=== PATIENT | male | born 1955 | race Caucasian/White ===

== ENCOUNTER 2022-05-08 10:54 | Emergency (ER) | payer MEDICARE, OTHER, SELFPAY ==
[2022-05-08 11:07] VITALS: BP 140/87; PULSE 73; RESP 18; TEMP 36.8; O2SAT 100
--- NOTE | 2022-05-08 11:29 | ED.GENADULT ---
HPI - General Adult General Chief complaint: Skin/Abscess/Foreign Body Stated complaint: cyst History of Present Illness HPI narrative: Patient is a 66-year-old male who presents to the [facility] care via [facility]OV for evaluation of a chronic cyst that became painful and erythematous over the past week. Patient believes he may need this cyst drained prompting today's visit. Denies taking OTC meds for symptoms. Touching the area increases tenderness. Patient has had multiple epidermal cysts removed from back. He recently scheduled a new patient appointment with dermatology. His appointment is June 03, 2022. Related Data Home Medications Medication Instructions Recorded Confirmed amlodipine 5 mg tablet 5 mg DAILY 05/08/22 05/08/22 aspirin 81 mg tablet,delayed 81 mg DAILY 05/08/22 05/08/22 release carvedilol 25 mg tablet 25 mg DAILY 05/08/22 05/08/22 hydrochlorothiazide 25 mg tablet 25 mg DAILY 05/08/22 05/08/22 lisinopril 40 mg tablet 40 mg DAILY 05/08/22 05/08/22 rosuvastatin 10 mg tablet 10 mg DAILY 05/08/22 05/08/22 Allergies Allergy/AdvReac Type Severity Reaction Status Date / Time cashew nut Allergy Rash Verified 05/08/22 11:23 Review of Systems Review of Systems: Denies injury. Pertinent negatives fever, chills, sweats, malaise, poor p.o. intake, change in appetite, headache, LOC, dizziness, streaking, drainage, numbness, tingling, loss of sensation, foreign body sensation, deformity, sob, chest pain, and heart palpitations/murmurs. PMFSH Comments I have reviewed and agree with the patient's past medical, surgical, social, and family hx as documented by the RN. There is no relevant family history pertinent to the presenting complaint. Exam Narrative: GENERAL: Well-appearing, well-nourished, and in no acute distress. HEAD: Normocephalic, atraumatic. No facial swelling appreciated. EYES: PERRLA and EOMI. No evidence of erythema, swelling, or drainage. ENT: Nares clear, no rhinorrhea or epistaxis.Mucous membranes moist and pink. Uvula is midline without erythema and swelling. No evidence of obstruction, petechial rash, cobblestoning, lesions, ulcers, erythema, swelling, exudates, peritonsillar abscess, tenting, or drooling. Breath odor and voice normal. NECK: Supple. No Lymphadenopathy or nuchal rigidity appreciated. CHEST: Bilateral lung boland are clear to auscultation. No respiratory distress. No evidence of cough or pleuritic cp upon examination. HEART: Regular rate and rhythm. No murmur, gallop, or rub heard. EXTREMITIES: Normal range of motion. No edema. SKIN: Warm, dry. Epidermal cyst that is 4 x 4-1/2 cm in size noted to mid back. There is mild surrounding cellulitis. No evidence of abscess, streaking, induration, abrasions/lacerations, petechiae, hematoma, contusion, drainage, or bleeding. NEURO: No focal deficits. Alert and oriented x3. SPECIAL OBSERVATIONS: Smiling. Laughing. No evidence of discomfort. C/O of of proportion to exam. Course Course Level of Care: Express Care Visit Vital Signs Vital signs: Vital Signs Temperature 98.3 F 05/08/22 11:07 Pulse Rate 73 05/08/22 11:07 Respiratory Rate 18 05/08/22 11:07 Blood Pressure 140/87 05/08/22 11:07 Pulse Oximetry 100 05/08/22 11:07 Oxygen Delivery Room Air 05/08/22 11:07 Temperature 98.3 F 05/08/22 11:07 Pulse Rate 73 05/08/22 11:07 Respiratory Rate 18 05/08/22 11:07 Blood Pressure 140/87 05/08/22 11:07 Pulse Oximetry 100 05/08/22 11:07 Oxygen Delivery Room Air 05/08/22 11:07 Procedures Abscess I/D back: Date of Incision: 05/08/22 Time of Incision: 11:40 Sedation/analgesia: none Local Anesthetic: lidocaine 1% and with epi Amount of anesthesia used (mL): 2 Technique: incised with #11 blade Amount of fluid expressed (mL): 10 Irrigation: No Packing used?: none I&D Results: Other (keratin material) Complications: bleedin
== END 2022-05-08 12:06 | disposition home or self-care (01) ==
PROVIDERS: Emergency Provider Nurse Practitioner Family
DX: L72.0 Epidermal cyst (principal); E78.00 Pure hypercholesterolemia, unspecified; I10 Essential (primary) hypertension
CPT/HCPCS: 10060; 99213; G0463

== ENCOUNTER 2024-09-11 10:38 | Emergency (ER) | payer MEDICARE, OTHER, SELFPAY ==
[2024-09-11 11:03] VITALS: BP 132/81; PULSE 74; RESP 18; TEMP 36.7; O2SAT 99
--- NOTE | 2024-09-11 11:36 | ED.SKABFB ---
HPI - Skin/Abscess/Foreign Bdy General Chief complaint: Skin/Abscess/Foreign Body Stated complaint: Skin/Abscess/Foreign Body Time Seen by Provider: 09/11/24 10:40 Source: patient Mode of arrival: ambulatory Limitations: no limitations History of Present Illness HPI narrative: Patient is a 69-year-old male who presents with wound on right shoulder plain that has been there for years. Patient states the last week it has become inflamed and is on draining. Patient has had cysts removed or drained in the past. Denies any fever, chills, nausea, vomiting, diarrhea. Related Data Home Medications Medication Instructions Recorded Confirmed amlodipine 5 mg tablet 10 mg DAILY 05/08/22 09/11/24 aspirin 81 mg tablet,delayed 81 mg DAILY 05/08/22 09/11/24 release carvedilol 25 mg tablet 25 mg PO BID 05/08/22 09/11/24 hydrochlorothiazide 25 mg tablet 25 mg DAILY 05/08/22 09/11/24 lisinopril 40 mg tablet 40 mg DAILY 05/08/22 09/11/24 rosuvastatin 10 mg tablet 10 mg DAILY 05/08/22 09/11/24 celecoxib 100 mg capsule 100 mg PO BID 09/11/24 09/11/24 furosemide 20 mg tablet 20 mg PO PRN PRN Edema 09/11/24 09/11/24 metformin 500 mg tablet,extended 500 mg PO BID 09/11/24 09/11/24 release 24 hr Allergies Allergy/AdvReac Type Severity Reaction Status Date / Time cashew nut AdvReac Mild Rash Verified 09/11/24 11:16 Review of Systems Review of Systems: All systems reviewed & are unremarkable except as noted in HPI and below Constitutional: Constitutional: Denies body ache(s), Denies chills, Denies fatigue, Denies fever(s), Denies headache(s), Denies malaise and Denies weakness Eyes: Eyes: Denies blurry vision, Denies irritation and Denies loss of vision ENT: Denies otalgia, Denies headache(s), Denies nasal discharge, Denies sinus pain and Denies sore throat Cardiovascular: Cardiovascular: Denies chest pain, Denies irregular heart rhythm and Denies dyspnea Respiratory: Respiratory: Denies dyspnea Gastrointestinal: Gastrointestinal: Denies abdominal pain, Denies melena, Denies hematochezia, Denies diarrhea, Denies nausea and Denies vomiting Musculoskeletal: Musculoskeletal: Denies back pain, Denies myalgias and Denies arthralgias Integumentary/Breasts: Skin/Breast: Denies pruritus, Denies rash and Reports wounds Neurologic: Denies headache(s), Denies loss of vision and Denies weakness Psychiatric: Psychiatric: Reports no additional psychiatric complaints Endocrine: Endocrine: Denies fatigue PMFSH Comments At time of signature, agree with nursing past medical, surgical, social and family history. There is no relevant family history pertinent to the presenting complaint. Exam Const: General: cooperative, healthy appearing, comfortable, no acute distress and well nourished Nutritional Appearance: well nourished Orientation/consciousness: patient oriented x3 Limitations: no limitations HENMT: Head: normal to inspection, normocephalic and atraumatic Ears: hearing grossly normal bilaterally and external ears normal Face/Nose/Sinus: Normal external nose present, normal facial exam and face symmetric Face and sinus: normal facial exam and face symmetric Mouth: Yes lip normal Eyes: General: appearance normal, both eyes and all related structures Alignment and Position: alignment normal and position normal Periorbital: periorbital findings normal Eyelids: eyelids normal Pupils: Equal, round and reactive pupils present EOM: EOMs intact bilaterally Neck: Neck: normal visual inspection, full ROM and supple Chest: Chest palpation & inspection: normal inspection of the chest Resp: Effort & Inspection: normal respiratory effort and able to speak in complete sentences Auscultation: clear to auscultation bilaterally Cardio: Rate: regular rate Rhythm: regular rhythm Heart sounds: S1 normal heart sound present and S2 normal heart sound present GI: Inspection: normal to inspection Skin: General skin exam: normal color and no rashes or lesions noted Lesions: lesion noted cyst right upper back size (2x2 cm), borders well-defined, color red, consistency firm and fixed and other (multiple dilated pores with sanguinopurulent drainage. surrounding area with induration and erythema); nontender Full body images: 1. wound description above Neuro: General: patient oriented x3 and moves all extremities Cranial nerves: Yes Equal, round and reactive pupils present Speech: normal speech Gait exam (Neuro): Normal gait present Extrem: General: normal to inspection, full ROM and no edema Psych: Appearance: grossly normal and well kempt Mental Status: mental status grossly normal Speech and movement: Normal speech and movement present Affect: normal affect Attitude: cooperative Thought process: Normal thought process present Course Course Emergency Course: Patient is aware of diagnosis, understands and agrees to treatment plan. Anticipatory guidance given. Patient agrees to follow-up as directed and is aware of reasons to seek care at the emergency department. Portions of this record may have been created with voice recognition software Level of Care: Express Care Visit Vital Signs Vital signs: Vital Signs Temperature 36.7 C 09/11/24 11:03 Pulse Rate 74 09/11/24 11:03 Respiratory Rate 18 09/11/24 11:03 Blood Pressure 132/81 09/11/24 11:03 Pulse Oximetry 99 09/11/24 11:03 Oxygen Delivery Room Air 09/11/24 11:03 Temperature 36.7 C 09/11/24 11:03 Pulse Rate 74 09/11/24 11:03 Respiratory Rate 18 09/11/24 11:03 Blood Pressure 132/81 09/11/24 11:03 Pulse Oximetry 99 09/11/24 11:03 Oxygen Delivery Room Air 09/11/24 11:03 Reviewed MDM - Skin/Abscess/Foreign Bdy MDM Narrative Medical decision making narrative: Area is already draining. Culture obtained and sent. Discussed follow-up with dermatology. Antibiotics referral given Exam findings show no acute concerns or changes; patient is non-toxic appearing and is in no distress.? Patient is appropriate for outpatient treatment and follow-up. Discharge instructions reviewed with patient, as well as provided in writing per nursing staff. The instructions also include specific and strict return/GO TO THE ER as well as f/u information. All questions have been answered, and the patient deny any further questions with discharge and discharge plan. Differential Diagnosis Differential diagnosis: Likely abscess of skin or subcutaneous tissue, cellulitis, insect bites and contact dermatitis Medical Records Attestation: I reviewed the patient's medical records. Discharge Plan Discharge Clinical Impression: Abscess of skin or subcutaneous tissue Qualifiers: Site of cutaneous abscess: trunk Site of cutaneous abscess of trunk: back Qualified Code(s): L02.212 - Cutaneous abscess of back [any part, except buttock] Patient Disposition: Home, Self-Care Condition: Stable Instructions: Abscess (ED) Additional Instructions: Take antibiotics as prescribed. Follow-up with dermatology. You have been prescribed Doxycycline today.It may make your skin more sensitive to sunlight than normal. Make sure you wear sunscreen at all times when outside while on the medication. You may shower - let the soapy water clean your wound, do not scrub it. Keep your wound covered to prevent transmission of infection to other people. Keep the wound covered and dry. Once a day: wash the wound with soap/water, apply Bactroban and re-cover the wound. Follow up with your primary care physician or in the Emergency Department in 2-3 days for a wound check. Go to the Emergency Department immediately if you develop any of the following symptoms: Fevers, Increased redness or swelling around where your abscess was, Increased pain, or Generalized weakness or vomiting Prescriptions: New doxycycline monohydrate 100 mg tablet 100 mg PO BID 7 Days Qty: 14 0RF No Action carvedilol 25 mg tablet 25 mg PO BID amlodipine 5 mg tablet 10 mg DAILY aspirin 81 mg tablet,delayed release (DR/EC) 81 mg DAILY hydrochlorothiazide 25 mg tablet 25 mg DAILY lisinopril 40 mg tablet 40 mg DAILY rosuvastatin 10 mg tablet 10 mg DAILY furosemide 20 mg tablet 20 mg PO PRN PRN (Reason: Edema) celecoxib 100 mg capsule 100 mg PO BID metformin 500 mg tablet extended release 24 hr 500 mg PO BID Follow-up/Referrals: Jh Zuñiga M.D. [Physician] - 3 Days (Make appointment for cyst removal) PHYSICIAN,PUBLIC SPEAKING COACH [Primary Care Provider] - Shivam Romero MD [Physician] - 3 Days (Establish care) Time of Disposition: 11:40
== END 2024-09-11 11:42 | disposition home or self-care (01) ==
PROVIDERS: Emergency Provider Nurse Practitioner Family
DX: L02.212 Cutaneous abscess of back [any part, except buttock and flank] (principal); I10 Essential (primary) hypertension; E78.00 Pure hypercholesterolemia, unspecified; M19.90 Unspecified osteoarthritis, unspecified site
CPT/HCPCS: 87070; 87075; 87205; 99213; G0463

== ENCOUNTER 2024-10-31 11:05 | Emergency (ER) | payer MEDICARE, OTHER, SELFPAY ==
--- NOTE | 2024-10-31 11:18 | ED.URI ---
HPI - URI/Sore Throat General Chief Complaint: Upper Respiratory Infection Stated Complaint: flu like symptoms Time Seen by Provider: 10/31/24 11:18 Source: patient, RN notes reviewed and old records reviewed Mode of arrival: ambulatory Limitations: no limitations History of Present Illness HPI Narrative: patient presents with complaints of flu-like symptoms since 4:00 a.m. this morning. He reports that he had fever of 101, took aspirin and felt better. He reports upon awakening he had headache, runny nose, cough, body aches. All symptoms have resolved since his arrival. He does report that he is more tired than usual Related Data Home Medications ?Medication ?Instructions ?Recorded ?Confirmed ?Last Taken ?Type amlodipine 5 mg tablet 10 mg DAILY 05/08/22 09/11/24 Unknown History aspirin 81 mg tablet,delayed 81 mg DAILY 05/08/22 09/11/24 Unknown History release carvedilol 25 mg tablet 25 mg PO BID 05/08/22 09/11/24 Unknown History hydrochlorothiazide 25 mg tablet 25 mg DAILY 05/08/22 09/11/24 Unknown History lisinopril 40 mg tablet 40 mg DAILY 05/08/22 09/11/24 Unknown History rosuvastatin 10 mg tablet 10 mg DAILY 05/08/22 09/11/24 Unknown History celecoxib 100 mg capsule 100 mg PO BID 09/11/24 09/11/24 Unknown History furosemide 20 mg tablet 20 mg PO PRN PRN Edema 09/11/24 09/11/24 Unknown History metformin 500 mg tablet,extended 500 mg PO BID 09/11/24 09/11/24 Unknown History release 24 hr Allergies Allergy/AdvReac Type Severity Reaction Status Date / Time cashew nut AdvReac Mild Rash Verified 10/31/24 11:21 Review of Systems Review of Systems: All systems reviewed & are unremarkable except as noted in HPI and below Constitutional: Constitutional: Reports no additional constitutional complaints, Reports body ache(s), Reports fever(s), Reports headache(s) and Reports lethargy ENT: Reports system reviewed and no additional complaints, except as documented and Reports nasal discharge Cardiovascular: Cardiovascular: Reports no additional cardiovascular complaints Respiratory: Respiratory: Reports no additional respiratory complaints and Reports cough Gastrointestinal: Gastrointestinal: Reports no additional gastrointestinal complaints PMFSH Comments At the time of my signature, I reviewed and agree with the nursing past medical, surgical, social, and family history. There is no relevant family history pertinent to the patient complaint. Exam Const: General: cooperative, no acute distress, alert and awake Orientation/consciousness: oriented to person, oriented to place and oriented to time HENMT: Head: normal to inspection Ears: TM's normal bilaterally Mouth: Yes moist mucous membranes Throat: posterior oropharynx normal Resp: Effort & Inspection: normal respiratory effort and able to speak in complete sentences Auscultation: clear to auscultation bilaterally, no crackles, no rales, no rhonchi and no wheezes Cardio: Palpation: normal PMI Rate: regular rate Rhythm: regular rhythm Heart sounds: S1 normal heart sound present and S2 normal heart sound present Neuro: General: oriented to person, oriented to place and oriented to time Cranial nerves: Yes CN's II-XII intact bilaterally Psych: Appearance: grossly normal Thought process: Normal thought process present Insight: Good insight present (Psych) Judgement: Good judgement present (Psych) Course Course Level of Care: Express Care Visit Vital Signs Vital signs: Reviewed MDM - URI/Sore Throat MDM Narrative Medical decision making narrative: negative flu, negative COVID. Reassuring physical exam. Counseled patient that flu and COVID tests may very well be inaccurate due to the short duration of symptoms prior to testing. Patient verbalizes understanding. Supportive care measures discussed. Suspect that symptoms are viral in origin. Discharge instructions reviewed with patient, as well as provided in writing per nursing staff. The instructions also include specific and strict return/GO TO THE ER as well as f/u information. All questions have been answered, and the patient deny any further questions with discharge and discharge plan. Some parts of this dictation were generated by voice recognition software and may contain typographical and/or grammatical inaccuracies. Differential Diagnosis Differential diagnosis: Likely upper respiratory infection, viral infection, bronchitis and influenza Medical Records Attestation: I reviewed the patient's medical records. Lab Data Attestation: I reviewed the patient's lab results. Discharge Plan Discharge Clinical Impression: Viral infection Patient Disposition: Home, Self-Care Condition: Stable Instructions: Antibiotic Form, Viral Syndrome (ED) Additional Instructions: use [id number] medications to treat your symptoms. Follow-up with primary care provider. Emergency department for new or worsening symptoms Patient Language: Frisian Prescriptions: No Action carvedilol 25 mg tablet 25 mg PO BID amlodipine 5 mg tablet 10 mg DAILY aspirin 81 mg tablet,delayed release (DR/EC) 81 mg DAILY hydrochlorothiazide 25 mg tablet 25 mg DAILY lisinopril 40 mg tablet 40 mg DAILY rosuvastatin 10 mg tablet 10 mg DAILY furosemide 20 mg tablet 20 mg PO PRN PRN (Reason: Edema) celecoxib 100 mg capsule 100 mg PO BID metformin 500 mg tablet extended release 24 hr 500 mg PO BID doxycycline monohydrate 100 mg tablet 100 mg PO BID 7 Days Qty: 14 0RF Follow-up/Referrals: Gilberto,MAHNAZ Quick [Primary Care Provider] - 1 Week Time of Disposition: 11:59
[2024-10-31 11:26] VITALS: BP 118/64; PULSE 78; RESP 20; TEMP 36.8; O2SAT 98
[2024-10-31 11:42] LABS: EDINFLUASCREEN Negative (Negative); EDINFLUBSCREEN Negative (Negative)
[2024-10-31 11:43] LABS: EDCOVIDSCREEN Negative (Negative)
--- OUTSIDE RECORDS SUMMARY | 2024-10-31 12:12 | XMS_ITS | Data Portability ---
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 Plan of Treatment Reminders Order Date Submit Date Provider Last Modified By Organization Details Last Modified Time Details Appointments None recorded. Lab None recorded. Referral None recorded. Procedures None recorded. Surgeries None recorded. Imaging electrocar diogram 2021 ADRIENNE Not available 2 17:00:43 electrocar diogram 2021 022 [email or web address] Not available 2 15:35:37 Medication Orders Lasix 20 mg tablet 2019 020 INTERFACE [facility], [address] [place] [address], [address], 0 14:00:59 magnesium oxide 400 mg (241.3 mg magnesium) tablet 2019 020 INTERFACE [facility], [address] [place] [address], [address], 0 14:00:59 aspirin 81 mg tablet,del ayed release 2019 020 INTERFACE [facility], [address] [place] [address], [address], 0 14:01:01 atenolol 50 mg tablet 2019 020 [facility], [address] [place] [address], [address], 0 12:42:44 hydrochlor othiazide 25 mg tablet 2019 INTERFACE [facility], [address] [place] [address], [address], 0 14:05:50 lisinopril 40 mg tablet 2019 INTERFACE [facility], [address] [place] [address], [address], 0 14:01:00 Lasix 20 mg tablet 2019 INTERFACE [facility], [address] [place] [address], [place], [id number], 0 14:01:00 simvastati n 40 mg tablet 2019 020 [email or web address] [facility], [address] [place] [address], [place], [id number], 2 14:49:12 aspirin 81 mg tablet,del ayed release 2019 INTERFACE [facility], [address] [place] [address], [place], [id number], 0 12:44:29 carvedilol 6.25 mg tablet 2019 [email or web address] [facility], [address] [place] [address], [place], [address], 1 13:10:40 Lasix 20 mg tablet 2019 INTERFACE [facility], [address] [place] [address], [place], [id number], 0 12:44:29 hydrochlor othiazide 25 mg tablet 2019 INTERFACE [facility], [address] [place] [address], [place], [address], 0 12:44:27 lisinopril 40 mg tablet 2019 020 [facility], [address] [place] [address], [address], 0 12:44:26 magnesium oxide 400 mg (241.3 mg magnesium) tablet 2019 020 [facility], [address] [place] [address], [address], 0 12:44:26 aspirin 81 mg tablet,del ayed release 2020 021 [facility], [address] [place] [address], [address], 13:13:58 Lasix 20 mg tablet 2020 021 [facility], [address] [place] [address], 490[address], 1 13:23:56 hydrochlor othiazide 25 mg tablet 2020 021 [facility], [address] [place] [address], 7[address], 1 13:28:54 lisinopril 40 mg tablet 2020 021 [facility], [address] [place] [address], [address], 1 13:13:57 magnesium oxide 400 mg (241.3 mg magnesium) tablet 2020 021 [facility], [address] [place] [address], 10574, 1 13:13:54 carvedilol 12.5 mg tablet 2020 021 [facility], [address] [place] [address], [address], 2 15:25:02 simvastati n 40 mg tablet [id number] [email or web address] [facility], [address] [place] [address], [place], [address], 14:49:12 aspirin 81 mg tablet,del ayed release 2021 [facility], [address] [place] [address], [place], [address], 15:35:42 Lasix 20 mg tablet 2021 [facility], [address] [place] [address], [place], [address], 15:35:44 hydrochlor othiazide 25 mg tablet 2021 [facility], [address] [place] [address], [place], [address], 15:35:45 lisinopril 40 mg tablet 2021 [facility], [address] [place] [address], [place], [address], 15:35:40 magnesium oxide 400 mg (241.3 mg magnesium) tablet 2021 [facility], [address] [place] [address], [place], [address], 15:35:42 carvedilol 25 mg tablet 2021 [facility], [address] [place] [address], [place], [address], 15:37:10 carvedilol 12.5 mg tablet 2021 [email or web address] [facility], [address] [place] [address], [place], [address], 15:25:02 simvastati n 40 mg tablet [id number] [address] [facility], [address] [place] [address], [address], 14:49:12 amlodipine 5 mg tablet 2021 [facility], [address] [place] [address], [address], 15:45:32 aspirin 81 mg tablet,del ayed release 2021 [facility], [address] [place] [address], [address], 15:45:31 carvedilol 25 mg tablet 2021 [facility], [address] [place] [address], [address], 15:45:29 Lasix 20 mg tablet 2021 [facility], [address] [place] [address], [address], 15:45:34 hydrochlor othiazide 25 mg tablet 2021 [facility], [address] [place] [address], [address], 15:45:33 lisinopril 40 mg tablet 2021 [facility], [address] [place] [address], [address], 15:45:34 magnesium oxide 400 mg (241.3 mg magnesium) tablet 2021 [facility], [address] [place] [address], 92[address], 15:45:30 simvastati n 40 mg tablet 2021 [email or web address] [facility], [address] [place] [address], [address], 14:49:12 Patient TargetsNo targets recorded. Patient Instructions Encounter Date Encounter Id Patient Instructions Last Modified By Organization Details Last Modified Time 05/30/2020 [id number] elevated blood pressure: care instructions [email or web address] Not available 05/30/2020 14:00:47 high cholesterol : care instructions [email or web address] Not available 05/30/2020 14:00:47 08/22/2020 [id number] elevated blood pressure: care instructions [email or web address] Not available 08/22/2020 12:42:34 high cholesterol : care instructions [email or web address] Not available 08/22/2020 12:42:34 08/21/2021 [id number] elevated blood pressure: care instructions [email or web address] Not available 08/21/2021 13:13:40 high cholesterol : care instructions [email or web address] Not available 08/21/2021 13:13:40 02/19/2022 [id number] elevated blood pressure: care instructions [email or web address] Not available 02/19/2022 15:35:38 high cholesterol : care instructions [email or web address] Not available 02/19/2022 15:35:38 Reason for Referral None Reported. Results Created Date Observation Date Name Description Value Unit Range Abnormal Flag Note LastModifiedBy Organization Detail LastModifiedTime 05/09/20 20 04/25/2020 elect rocar diogr am No observ ation record ed. [email or web address] Not Available 2019 11:55:28 08/28/20 20 08/22/2020 elect rocar diogr am No observ ation record ed. [email or web address] Not Available 2019 11:30:19 08/26/20 21 08/21/2021 elect rocar diogr am No observ ation record ed. [email or web address] Not Available 2020 11:09:58 10/16/19 22 09/22/2021 , echo ardio gram No observ ation record ed. [email or web address] Not Available 2021 14:40:55 02/20/20 22 02/19/2022 elect rocar diogr am No observ ation record ed. [email or web address] Dhaval Steele MD [address], [place], [address], 02/19/2022 17:00:43 02/20/20 22 02/19/2022 elect nasir quintana am No observ ation record ed. [email or web address] Dhaval Steele MD [address], [place], [address], 05/02/2022 16:33:27 02/21/20 22 02/19/2022 elect ansir quintana am No observ ation record ed. [email or web address] Not Available 2021 09:55:32 Result Notes Documentation Provider Name and Address Organization Details Recorded Time Lipid Panel, Blood : 08/26/21:Na 142,k 3.9,Cl 101,Co2 27,Glu 114,Bun 19,Cr 0.90. 08/26/21:TC 166,TG 139,HDL 38,LDL 102. Shruthi herrera [place] - [facility] 09/24/2021 11:02:46 Problems Name Problem SNOMED Code Status Onset Date Resolution Date Notes Provider Name and Address Organization Details Recorded Time Hypertensiv e disorder 37014401 Active 2018 Shruthi herrera, [place] - [facility] 2 14:38:04 Hyperlipide rashaad 93080904 Active 2018 Shruthi herrera, [place] - [facility] 2 14:37:58 Electrocard iogram abnormal 337160980 Active 2018 Jerzy herrera, [place] - [facility] 9 16:13:58 Dyspnea on exertion 84683816 Active 2018 Jerzy herrera, [place] - [facility] 9 16:15:27 Pre-surgery evaluation Completed 201809/21/2019 Jerzy herrera [place] - [facility] 9 14:48:29 Chest discomfort 921234598 Active 2018 Jerzy [place] - [facility] 9 14:48:41 Diabetes mellitus 11738866 Active 2018 HgbA1c 6.4 PC Jerzy herrera, [place] - [facility] 15:24:41 Problem Notes None recorded. Procedures Surgical History None recorded. Imaging Results Imaging Date Name Status LastModified by Organization Details LastModified Time 04/25/2020 electrocardiogram completed Informa tion not available 05/09/2020 11:55:28 08/22/2020 electrocardiogram completed Informa tion not available 08/28/2020 11:30:19 08/21/2021 electrocardiogram completed Informa tion not available 08/26/2021 11:09:58 09/22/2021 US, echocardiogram completed [email or web address] Inform ation not available 02/16/2022 14:40:55 02/19/2022 electrocardiogram completed [email or web address] Dhaval Bearden MD [address], [place], [address], 02/19/2022 17:00:43 02/19/2022 electrocardiogram completed esto Dhaval Bearden MD [address], [place], [address], 05/02/2022 16:33:27 02/19/2022 electrocardiogram completed Informa tion not available 02/20/2022 09:55:32 Procedure Notes None recorded. Medical Equipment None Reported. Allergies No known drug allergies Medications Name Sig Start Date Stop Date Status Note LastModified by Organization Details LastModified Time carvedilo l 25 mg tablet Take 1 tablet twice a day by oral route. active Not Available Not Available No t Available carvedilo l 6.25 mg tablet Take 1 tablet twice a day by oral route. 08/21 completed Not Available Not Available Not Available prednison e 10 mg tablet 09/21 completed Not Available Not Available Not Available carvedilo l 12.5 mg tablet Take 1 tablet twice a day by oral route. 04/02 completed Not Available Not Available Not Available ofloxacin 0.3 % eye drops 04/25 completed Not Available Not Available Not Available valacyclo vir 1 gram tablet 04/25 completed Not Available Not Available Not Available prednison e 20 mg tablet 09/21 completed Not Available Not Available Not Available amlodipin e 5 mg tablet Take 1 tablet every day by oral route. active Not Available Not Available No t Available simvastat in 80 mg tablet Take 1 tablet every day by oral route at bedtime. 08/21 completed Not Available Not Available Not Available sulfameth oxazole 800 mg-trimet hoprim 160 mg tablet 03/23 completed Not Available Not Available Not Available aspirin 81 mg tablet,de layed release 1 time daily active Not Available Not Available No t Available simvastat in 40 mg tablet Take 1 tablet every day by oral route in the evening. 04/16 completed 04/02/22 [facility] Rx informed office simvasta tin is contrain dicated with Amlodipi ne - order: disconti nue simvasta tin and start Crestor/ NU/ek Not Available Not Available Not Available ketorolac 0.5 % eye drops 04/25 completed Not Available Not Available Not Available prednisol one acetate 1 % eye drops,[employer] pension 04/25 completed Not Available Not Available Not Available magnesium oxide 400 mg (241.3 mg magnesium ) tablet Take 1 tablet every other day by oral route. active Not Available Not Available No t Available simvastat in 20 mg tablet 1 time daily 03/23 completed Not Available Not Available Not Available hydrochlo rothiazid e 25 mg tablet 1 time daily active Not Available Not Available No t Available furosemid e 20 mg tablet Take 0.5 tablets every day by oral route as needed. active Not Available Not Available No t Available lisinopri l 40 mg tablet 1 time daily active Not Available Not Available No t Available metformin ER 500 mg tablet,ex tended release 24 hr 1 tab twice daily active Not Available Not Available No t Available atenolol 50 mg tablet 1 time daily 08/22 completed Not Available Not Available Not Available rosuvasta tin 10 mg tablet Take 1 tablet every day by oral route at bedtime. active Not Available Not Available No t Available Afluria Quad (PF) 60 mcg (15 mcg x 4)/0.5 mL IM syringe 04/25 completed Not Available Not Available Not Available Fluzone Quad (PF) 60 mcg (15 mcg x 4)/0.5 mL IM syringe ADM 0.5ML IM UTD active Not Available Not Available No t Available Vitals Date Recorded Body height Body temperature Body mass index (BMI) Body weight Oxygen saturation Oxygen saturation in Arterial blood by Pulse oximetry Heart rate Systolic blood pressure Diastolic blood pressure Provider Name and Address Organization Details Last Updated DateTime 0 162.56 cm 97.9 [degF] 36 kg/m2 41003.6 g 98 % 98 % 78 /min 134 mm[Hg] 90 mm[Hg] [facility] 0 11:05:46 Date Recorded Body height Oxygen saturation Oxygen saturation in Arterial blood by Pulse oximetry Body temperature Body mass index (BMI) Body weight Heart rate Systolic blood pressure Diastolic blood pressure Provider Name and Address Organization Details Last Updated DateTime 0 162.56 cm 97 % 97 % 98.2 [degF] 36.9 kg/m2 26931.3 6 g 63 /min 170 mm[Hg] 100 mm[Hg] [facility] 0 12:08:44 Date Recorded Body height Body mass index (BMI) Body weight Heart rate Oxygen saturation Oxygen saturation in Arterial blood by Pulse oximetry Systolic blood pressure Diastolic blood pressure Provider Name and Address Organization Details Last Updated DateTime 1 162.56 cm 34 kg/m2 44319.2 9 g 68 /min 99 % 99 % 170 mm[Hg] 110 mm[Hg] [facility] 1 12:26:48 Date Recorded Body height Body mass index (BMI) Body weight Heart rate Systolic blood pressure Diastolic blood pressure Provider Name and Address Organization Details Last Updated DateTime 2 162.56 cm 33.5 kg/m2 87270.5 1 g 72 /min 160 mm[Hg] 96 mm[Hg] [facility] 2 15:01:16 Date Recorded Body height Body mass index (BMI) Body weight Oxygen saturation Oxygen saturation in Arterial blood by Pulse oximetry Heart rate Systolic blood pressure Diastolic blood pressure Provider Name and Address Organization Details Last Updated DateTime 2 162.56 cm 33.6 kg/m2 38464.1 g 97 % 97 % 69 /min 164 mm[Hg] 92 mm[Hg] DERRELL VARGHESE [facility] 2 14:54:28 Social History Question Answer Notes LastModified by Organizat ion Details LastModified Time Tobacco Smoking Status [facility] 08/22/2020 12:11:19 What Is Your Level Of Alcohol Consumption? None Information not available 08/22/2020 What Is Your Level Of Caffeine Consumption? Moderate 1 Cup Coffee Qd Information not available 08/22/2020 What Type Of Diet Are You Following? REGULAR Information not available 08/22/2020 Which Illicit Or Recreational Drugs Have You Used? Denies Information not available 08/22/2020 Do You Or Have You Ever Used E-cigarettes Or Vape? Never Used Electronic Cigarettes Information not available 08/22/2020 Live Alone Or With Others? With Others Information not available 08/22/2020 Marital Status Informatio n not available 08/22/2020 How Many Children Do You Have? 1 Adopted Information not available 08/22/2020 Sex: Unknown Functional Status None recorded. Mental Status None recorded. Family History Relationship Description Onset Age of this Age Resolved Age Notes LastModified by Organization Details LastModified Time Mother Diabetes mellitus [email or web address] Not available 2018 16:03:56 Medical History Condition Response Diabetes Y Hyperlipidemia Y Hypertension Y Past Encounters Encounter ID Performer Location Encounter Start Date Encounter Closed Date Diagnosis/Indication Diagnosis SNOMED-CT Code Diagnosis ICD10 Code Diagnosis Note [id number] Jerzy Johnsonski [address] [place] [address] 03/02/2019 15:32:07 03/02/2019 16:19:50 Electrocardiogram abnormal 490463393 R94.31 Hyperlipidemia 57087352 E78.5 will obtain lipid panelcont statin Hypertensive disorder 38 222541 I10 Patient's blood pressure is {{well-con trolled* n ot well-contr olled}} on present medical therapy. Patient is {{tolerati ng, without difficulty ,* having side effects with}} the current medication s. I have {{not made* made the following} } changes to the current regimen. {{ Patient is advised to maintain a blood pressure diary.*}} Cont low Na diet. Dyspnea on exertion 6084 5006 R06.09 Patient presents with ORR which could be equivalent of angina.Giv en the history, exam findings and {{high int ermediate * low}} cardiac risk factors, I {{feel* do not feel}} additional investigat ion is warranted. I have made arrangemen ts in the near future for {{an exercise stress echocardio gram to evaluate for any ischemia, structural heart disease, or exercise induced arrythmia an exercise stress nuclear test an exercise stress nuclear test (stress echo not possible due to COPD or obesity) a n exercise stress nuclear test and an echocardio gram to evaluate for any ischemia or structural heart disease* a pharmacolo gic stress nuclear test due to reduced functional capacity or conduction abnormalit y cardiac catheteriz ation an echocardio gram to evaluate left ventricula r function and any structural heart disease or valvular abnormalit y}}. The procedure was discussed with the patient, and risks, benefits, and alternativ e options were explained. {{ The patient was informed about heart catheteriz ation and interventi onal procedures and agrees to proceed.}} Appropriat e labwork {{has has not*}} been performed recently, therefore I {{have not have*} } made arrangemen ts for further testing. I have asked the patient to curtail exercise and activities until our investigat ion is complete. I have {{made no made the following* }} adjustment s to the present medical regimen. {{ Patient has been started on daily aspirin.}} {{ Patient has been given a prescripti on for sublingual nitroglyce rin.}} Pre-surger y evaluation 354306933 Z01.818 if stress test negative pt does have low risk for low risk surgery [id number] [facility] OFFICE [address] [place] [address] 03/23/2019 14:42:56 03/23/2019 15:47:39 Electrocardiogram abnormal 333017406 R94.31 Hyperlipidemia 87120721 E78.5 Patient's hyperlipid emia is {{well-con trolled* n ot well-contr olled}} on present medical therapy. Patient is {{tolerati ng, without difficulty ,* having side effects with}} the current medication s. I have {{not made* made the following} } changes to the current regimen. Cont low cholestero l diet. Hypertensive disorder 38 612458 I10 Patient's blood pressure is {{well-con trolled* n ot well-contr olled}} on present medical therapy. Patient is {{tolerati ng, without difficulty ,* having side effects with}} the current medication s. I have {{not made* made the following} } changes to the current regimen. {{ Patient is advised to maintain a blood pressure diary.*}} Cont low Na diet. Dyspnea on exertion 6084 5006 R06.09 stress test negativeco nt medical management and risk factor modificati on Pre-surger y evaluation 717038074 Z01.818 tress test negative pt does have low risk for low risk [id number] [address] [place] [address] 09/21/2019 13:51:30 09/21/2019 14:51:15 Hyperlipidemia 87012122 E78.5 Patient's hyperlipid emia is {{well-con trolled* n ot well-contr olled}} on present medical therapy. Patient is {{tolerati ng, without difficulty ,* having side effects with}} the current medication s. I have {{not made* made the following} } changes to the current regimen. Cont low cholestero l diet. Hypertensive disorder 38 790212 I10 Patient's blood pressure is {{well-con trolled* n ot well-contr olled}} on present medical therapy. Patient is {{tolerati ng, without difficulty ,* having side effects with}} the current medication s. I have {{not made* made the following} } changes to the current regimen. {{ Patient is advised to maintain a blood pressure diary.*}} Cont low Na diet. Chest discomfort 9733363 09 R07.89 Patient presents with {{chest* a rm back ja w}} pain {{typical of angina wit h atypical features*} }. Given the history, exam findings and {{high int ermediate * low}} cardiac risk factors, I {{feel* do not feel}} additional investigat ion is warranted. I have made arrangemen ts in the near future for {{coronary CTA# an exercise stress echocardio gram to evaluate for any ischemia, structural heart disease, or exercise induced arrythmia an exercise stress nuclear test an exercise stress nuclear test (stress echo not possible due to COPD or obesity) a n exercise stress nuclear test and an echocardio gram to evaluate for any ischemia or structural heart disease a pharmacolo gic stress nuclear test due to reduced functional capacity or conduction abnormalit y cardiac catheteriz ation an echocardio gram to evaluate left ventricula r function and any structural heart disease or valvular abnormalit y}}. The procedure was discussed with the patient, and risks, benefits, and alternativ e options were explained. {{ The patient was informed about heart catheteriz ation and interventi onal procedures and agrees to proceed.}} Appropriat e labwork {{has has not*}} been performed recently, therefore I {{have not have*} } made arrangemen ts for further testing. I have asked the patient to curtail exercise and activities until our investigat ion is complete. I have {{made no made the following* }} adjustment s to the present medical regimen. {{ Patient has been started on daily aspirin.}} {{ Patient has been given a prescripti on for sublingual nitroglyce rin.}} [id number] [facility] [address] [place] [address] 10/26/2019 14:04:29 10/26/2019 15:03:06 Electrocardiogram abnormal 132951575 R94.31 Hyperlipidemia 37924999 E78.5 Patient's hyperlipid emia is {{well-con trolled* n ot well-contr olled}} on present medical therapy. Patient is {{tolerati ng, without difficulty ,* having side effects with}} the current medication s. I have {{not made* made the following} } changes to the current regimen. Cont low cholestero l diet. Hypertensive disorder 38 826168 I10 Patient's blood pressure is {{well-con trolled* n ot well-contr olled}} on present medical therapy. Patient is {{tolerati ng, without difficulty ,* having side effects with}} the current medication s. I have {{not made* made the following} } changes to the current regimen. {{ Patient is advised to maintain a blood pressure diary.*}} Cont low Na diet. Dyspnea on exertion 6084 5006 R06.09 stress test negativeco ronary CTA: no significan t CAD.cont medical management and risk factor modificati on Pre-surger y evaluation 394006328 Z01.818 tress test negative pt does have low risk for low risk surgery [id number] [facility] OFF[facility] [address] [place] [address] 04/25/2020 13:52:14 04/25/2020 14:28:39 Electrocardiogram abnormal 192386128 R94.31 Hyperlipidemia 00530443 E78.5 Patient's hyperlipid emia is {{well-con trolled* n ot well-contr olled}} on present medical therapy. Patient is {{tolerati ng, without difficulty ,* having side effects with}} the current medication s. I have {{not made* made the following} } changes to the current regimen. Cont low cholestero l diet. repeat FLP Hypertensive disorder 38 792094 I10 Patient's blood pressure is {{well-con trolled no t well-contr olled*}} on present medical therapy. Patient is {{tolerati ng, without difficulty ,* having side effects with}} the current medication s. I have {{not made* made the following} } changes to the current regimen. {{ Patient is advised to maintain a blood pressure diary.*}} Cont low Na diet. BP diary Dyspnea on exertion 6084 5006 R06.09 stress test negativeco ronary CTA: no significan t CAD[place] [id number] [facility] [address] [place] [address] 05/30/2020 10:54:39 05/30/2020 14:04:39 Electrocardiogram abnormal [id number] R94.31 Hyperlipidemia [id number] E78.5 Patient's hyperlipid emia is {{well-con trolled* n ot well-contr olled}} on present medical therapy. Patient is {{tolerati ng, without difficulty ,* having side effects with}} the current medication s. I have {{not made* made the following} } changes to the current regimen. Cont low cholestero l diet. repeat FLP Hypertensive disorder 38 [id number] I10 Patient's blood pressure is {{well-con trolled no t well-contr olled*}} on present medical therapy. Patient is {{tolerati ng, without difficulty ,* having side effects with}} the current medication s. I have {{not made* made the following} } changes to the current regimen. {{ Patient is advised to maintain a blood pressure diary.*}} Cont low Na diet. BP diary Dyspnea on exertion 6084 5006 R06.09 stress test negativeco ronary CTA: no significan t CAD[place] [id number] [facility] [address] [place] [address] 08/22/2020 11:55:58 08/22/2020 12:34:51 Electrocardiogram abnormal [id number] R94.31 Hyperlipidemia [id number] E78.5 Patient's hyperlipid emia is {{relative ly well-contr olled# wel l-controll ed not well-contr olled}} on present medical therapy. Patient is {{tolerati ng, without difficulty ,* having side effects with}} the current medication s. I have {{not made* made the following} } changes to the current regimen. Cont low cholestero l diet. repeat FLP Hypertensive disorder 38 618331 I10 Patient's blood pressure is {{well-con trolled no t well-contr olled*}} on present medical therapy. Patient is {{tolerati ng, without difficulty ,* having side effects with}} the current medication s. I have {{not made made the following* }} changes to the current regimen switch atenolol for carvedilol .. {{ Patient is advised to maintain a blood pressure diary.*}} Cont low Na diet. BP diary Dyspnea on exertion 6084 5006 R06.09 stress test negativeco ronary CTA: no significan t CAD.[place] [address] [facility] OFF[facility] [address] [place] [address] 08/21/2021 11:56:32 08/21/2021 13:06:51 Electrocardiogram abnormal [id number] R94.31 Hyperlipidemia 56803347 E78.5 Patient's hyperlipid emia is {{relative ly well-contr olled# wel l-controll ed not well-contr olled}} on present medical therapy. Patient is {{tolerati ng, without difficulty ,* having side effects with}} the current medication s. I have {{not made* made the following} } changes to the current regimen. Cont low cholestero l diet. repeat [facility] Hypertensive disorder 38 706171 I10 Patient's blood pressure is {{well-con trolled no t well-contr olled*}} on present medical therapy. Patient is {{tolerati ng, without difficulty ,* having side effects with}} the current medication s. I have {{not made made the following* }} changes to the current regimen incease carvedilol .. {{ Patient is advised to maintain a blood pressure diary.*}} Cont low Na diet. BP diary ECHO Dyspnea on exertion 6084 5006 R06.09 stress test negativeco ronary CTA: no significan t CAD.cont medical [place] [address] [facility] [address] [place] [address] 02/19/2022 14:31:39 02/19/2022 15:29:48 Electrocardiogram abnormal [id number] R94.31 Hyperlipidemia 52426856 E78.5 Patient's hyperlipid emia is {{relative ly well-contr olled# wel l-controll ed not well-contr olled}} on present medical therapy. Patient is {{tolerati ng, without difficulty ,* having side effects with}} the current medication s. I have {{not made* made the following} } changes to the current regimen. Cont low cholestero l diet. repeat [facility] Hypertensive disorder 38 954305 I10 Patient's blood pressure is {{well-con trolled no t well-contr olled rela tively well-contr olled#}} on present medical therapy. Patient is {{tolerati ng, without difficulty ,* having side effects with}} the current medication s. I have {{not made made the following* }} changes to the current regimen incease carvedilol .. {{ Patient is advised to maintain a blood pressure diary.*}} Cont low Na diet. BP diary ECHO Dyspnea on exertion 6084 5006 R06.09 stress test negativeco ronary CTA: no significan t CAD.[place] [address] [facility] OFFICE [address] [place] [address] 04/02/2022 14:32:13 04/02/2022 15:36:00 Electrocardiogram abnormal [id number] R94.31 Hyperlipidemia 04519295 E78.5 Patient's hyperlipid emia is {{relative ly well-contr olled# wel l-controll ed not well-contr olled}} on present medical therapy. Patient is {{tolerati ng, without difficulty ,* having side effects with}} the current medication s. I have {{not made* made the following} } changes to the current regimen. Cont low cholestero l diet. repeat FLP Hypertensive disorder 38 279827 I10 Patient's blood pressure is {{well-con trolled no t well-contr olled rela tively well-contr olled#}} on present medical therapy. Patient is {{tolerati ng, without difficulty ,* having side effects with}} the current medication s. I have {{not made made the following* }} changes to the current regimen add amlodipine {{ Patient is advised to maintain a blood pressure diary.*}} Cont low Na diet. BP diary ECHO Dyspnea on exertion 6084 5006 R06.09 stress test negativeco ronary CTA: no significan t CAD.cont medical management and risk factor modificati on Health Concerns Section Related Observation LastModified by Organization Detai ls LastModified Time None Recorded Concern Status LastModified by Organization Details LastModified Time None Recorded Advance Directives Directive None Recorded Payers Encounter Date Sequence Insurance Name Policy Number Policy Galvez Covered Member ID Galvez Member ID Guarantor Name 05/30/2020 2 [employer] () Henry Melara [id number] Henry Melara 08/22/2020 2 [employer] () Henry Melara [id number] Henry Melara 08/21/2021 2 [employer] [place] () Henry Melara [id number] Henry Melara 08/21/2021 1 MEDICARE-[place] (MEDICARE) Henry Melara [id number] Henry Melara 02/19/2022 2 [employer] [place] () Henry Melara [id number] Henry Melara 02/19/2022 1 [place] Henry Melara [id number] Henry Melara 04/02/2022 2 [facility] - [place]IME () Henry Melara [id number] Henry Melara 04/02/2022 1 [place] Henry Melara [id number] Henry Melara Notes Date Note Type Note Provider Name and Address Organization Details Recorded Time 05/30/2020 text/html 05/30/20 CC: CP fu HPI: 64 y/o man with PMH of HTN and HLD presents for scheduled fu. Pt was seen last time 1 month ago. since then doing fine. Occasionally does have episodes of chest discomfort, not related to physical activity. He states that was recently diagnosed with DM few weeks ago. He was started on Metformin. His HgbA1c was 7.2. BP at home 134/80, today little anxious overall feels fine. Occasionally noticed to have mild LE edema. States that eats frequently fast food. Does not follow low Na diet. Occasionally does have sharp/dull chest discomfort not related to physical activity. CTA 10/16/2019: No significant CAD previously he was seen for preop eval and had stress test which was negative. he underwent cataract surgery on outpatient basis, [facility]. He had EKG which was abnormal. pt had stress test 2017 at [place], [place] he was told it was OK bp well controlled 120/70 hr 60 No known history of coronary artery disease. No history of previous myocardial infarction. No history of heart failure. No known valvular heart disease. No known arrhythmia. Patient reports feeling well overall. Patient is active, but is not exercising regularly. No chest pain. No arm pain. No neck pain. No nausea and vomiting. No diaphoresis. No shortness of breath at rest. Dyspnea on exertion reported. No fatigue. No orthopnea. No PND. No leg swelling. No palpitation. No dizziness. No syncope . No pre-syncope. No claudication. No major bleeding events. No side effects from medications. Complete ROS negative except as stated in the HPI and ROS. Results from this visit, or from the past: 05/03/20 HgA1c: 6.407/20 LIPID: TC 158, TR 140, HDL 39, LDL 66624 BMP: NA 143, K 4.4, CL 106, CO2 26, GLU 113, BUN 17, CR 0.90 09/22/19 LIPID: TC 146 TRI 85 HDL 41 LDL 89 09/22/19 BMP: NA 144 K 4.0 CL 104 CO2 31 GLU 133 BUN 18 CR 0.90 09/22/19 CBC: WBC 7.4 HCT 43.4 HGB 14.3 PLT 216 LIPIDS 01/07/19 TC 174, TG94, LDL 116, HDL 44 EKG 04/25/20: NSR, poor R progression, NSST changes EKG 09/21/19: NSR, poor R progression, NSST changes EKG 03/02/19: NSR, poor R progression, NSST changes 03/21/19 TDM: Negative stress test. Normal LV systolic function. No previous study to compare. LVEF 65%. 03/10/19 ECHO: Study quality: Technically difficult. LV chamber size is normal. There is borderline LV hypertrophy. There is normal global systolic function and contractility. The estimated left ventricle ejection fraction is 55-60%(normal). There is mild thickening of mitral valve anterior leaflet. Jerzy Islas [place], [place] - [facility] 05/30/2020 14:04:36 08/22/2020 text/html 08/22/20 CC: HTN fu HPI: 64 y/o man with PMH of HTN and HLD presents for scheduled fu. Pt was seen last time 3 month ago. since then doing fine.Since then gained 6 lbs. 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 BP 150/90 sometimes, he is on atenolol tomeka the last 20 yrs He was recently diagnosed with DM . He was started on Metformin. His last HgbA1c was 5.4. managed at [facility] BP at home 134/80, today little anxious overall feels fine. Occasionally noticed to have mild LE edema. States that eats frequently fast food. Does not follow low Na diet. Occasionally does have sharp/dull chest discomfort not related to physical activity. CTA 10/16/2019: No significant CAD previously he was seen for preop eval and had stress test which was negative. he underwent cataract surgery on outpatient basis, [facility]. He had EKG which was abnormal. pt had stress test 2016 at [place], [place] he was told it was OK bp well controlled 120/70 hr 60 No known history of coronary artery disease. No history of previous myocardial nfarction.No history of heart failure. No known valvular heart disease. No known arrhythmia.Patient reports feeling well overall. Patient is active, but is not exercising regularly.No chest pain. No arm pain. No neck pain. No nausea and vomiting. No diaphoresis.No shortness of breath at restDyspnea on exertion reported. No fatigue. No orthopnea. No PND. No leg swelling. No palpitation. No dizziness. No syncope . No pre-syncope. No claudication. No major bleeding events.No side effects from medications Complete ROS negative except as stated in the HPI and ROS. Results from this visit, or from the past:05/03/20 HgA1c: 6.4 05/03/20 LIPID: TC 158, TR 140, HDL 39, LDL 0064805/03/20 BMP: NA 143, K 4.4, CL 106, CO2 26, GLU 113, BUN 17, CR 0. LIPID: TC 146 TRI 85 HDL 41 LDL 89 09/22/19 BMP: NA 144 K 4.0 CL 104 CO2 31 GLU 133 BUN 18 CR 0.90 09/22/19 CBC: WBC 7.4 HCT 43.4 HGB 14.3 PLT 216 LIPIDS 01/07/19 TC 174, TG94, LDL 116, HDL 44 EKG 08/22/20: NSR, poor R progression, NSST changesEKG 04/25/20: NSR, poor R progression, NSST changesEKG 09/21/19: NSR, poor R progression, NSST changes EKG 03/02/19: NSR, poor R progression, NSST changes 03/21/19 TDM: Negative stress test. Normal LV systolic function. No previous study to compare. LVEF 65%. 03/10/19 ECHO: Study quality: Technically difficult. LV chamber size is normal. There is borderline LV hypertrophy. There is normal global systolic function and contractility. The estimated left ventricle ejection fraction is 55-60%(normal). There is mild thickening of mitral valve anterior leaflet. Jerzy Islas [place], [place] - [facility] 08/22/2020 12:45:56 08/21/2021 text/html 08/21/21CC : Car diac follow up HPI:65 y/o man with PMH of Hypertension and Hyperlipidemia is here for 1 year follow up.He was last seen in the clinic on 08/22/20 , since then heHe denies ER visits and hospitalizations since he was last seen. 140-150/70-82 Today reports:Denies chest pain.Denies shortness of breath at rest. Has mild dyspnea on exertion.No orthopnea. No PNDs.Denies heart palpitations.Denies dizziness. Denies syncope or near syncope.No ankle or leg edema.No major bleeding events.No reported side effects from medications. Taking medications as prescribed with no missed doses.Denies snoring, daytime somnolence and AM headache.*Last LDL was 103 done on 05/02/20 .Pt takes simvastatin 40 mg. 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 He was recently diagnosed with DM . He was started on Metformin. His last HgbA1c was 5.4. managed at [facility] overall feels fine. Occasionally noticed to have mild LE edema. States that eats frequently fast food. Does not follow low Na diet. Occasionally does have sharp/dull chest discomfort not related to physical activity. CTA 10/16/2019: No significant CADpreviously he was seen for preop eval and had stress test which was negative. he underwent cataract surgery on outpatient basis, [facility]. He had EKG which was abnormal. pt had stress test 2017 at [place], [place] he was told it was OK Had Dyspnea on exertion .Results from this visit, or from the past:05/03/20 HgA1c: 6.407 LIPID: TC 158, TR 140, HDL 39, LDL 42253 BMP: NA 143, K 4.4, CL 106, CO2 26, GLU 113, BUN 17, CR 0. LIPID: TC 146 TRI 85 HDL 41 LDL BMP: NA 144 K 4.0 CL 104 CO2 31 GLU 133 BUN 18 CR 0. CBC: WBC 7.4 HCT 43.4 HGB 14.3 PLT 216LIPIDS 01/07/19 TC 174, TG94, LDL 116, HDL 44 EKG 08/22/20: NSR, poor R progression, NSST changesEKG 04/25/20: NSR, poor R progression, NSST changesEKG 09/21/19: NSR, poor R progression, NSST changesEKG 03/02/19: NSR, poor R progression, NSST fowaxcn10/18/19 TDM: Negative stress test. Normal LV systolic function. No previous study to compare. LVEF 65%.03/10/19 ECHO: Study quality: Technically difficult. LV chamber size is normal. There is borderline LV hypertrophy. There is normal global systolic function and contractility. The estimated left ventricle ejection fraction is 55-60%(normal). There is mild thickening of mitral valve anterior leaflet. [facility]zy Islas [facility] 08/21/2021 13:16:34 02/19/2022 text/html 02/19/22CC : Car diac follow up HPI:66 y/o man with PMH of Hypertension and Hyperlipidemia is here for follow up. He was last seen in the clinic on 08/21/21 , since then he feels fine, Provided me his BP diary. usually it is well controlled but occasionally goes to 167/93) he is still pretty active.He denies ER visits and hospitalizations since he was last seen. Today reports:Denies chest pain.Denies shortness of breath at rest. Has mild dyspnea on exertion.No orthopnea. No PNDs.Denies heart palpitations.Denies dizziness. Denies syncope or near syncope.No ankle or leg edema.No major bleeding events.No reported side effects from medications. Taking medications as prescribed with no missed doses.Denies snoring, daytime somnolence and AM headache.*Last LDL was 102 done on 09/03/21 .Pt takes simvastatin 40 mg. *Had ECHO done on 09/22/21 showed LV chamber size is normal. There is borderline LV hypertrophy. LV systolic function is low normal. The estimated left ventricle ejection fraction is 50-55%(normal).LV relaxation is impaired. Left atrium chamber is mildly dilated. There is mild aortic root calcification. There is trivial aortic regurgitation. There is trace tricuspid regurgitation. 08/26/21:Na 142,k 3.9,Cl 101,Co2 27,Glu 114,Bun 19,Cr 0.90.08/26/21:TC 166,TG 139,HDL 38,LDL 102. 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 He was recently diagnosed with DM . He was started on Metformin. His last HgbA1c was 5.4. managed at [facility] overall feels fine. Occasionally noticed to have mild LE edema. States that eats frequently fast food. Does not follow low Na diet. Occasionally does have sharp/dull chest discomfort not related to physical activity. CTA 10/16/2019: No significant CADpreviously he was seen for preop eval and had stress test which was negative. he underwent cataract surgery on outpatient basis, [facility]. He had EKG which was abnormal. pt had stress test 2016 at [place], [place] he was told it was OK Had Dyspnea on exertion .Results from this visit, or from the past:05/03/20 HgA1c: 6.407 LIPID: TC 158, TR 140, HDL 39, LDL 5998305/03/20 BMP: NA 143, K 4.4, CL 106, CO2 26, GLU 113, BUN 17, CR 0. LIPID: TC 146 TRI 85 HDL 41 LDL BMP: NA 144 K 4.0 CL 104 CO2 31 GLU 133 BUN 18 CR 0. CBC: WBC 7.4 HCT 43.4 HGB 14.3 PLT 216LIPIDS 01/07/19 TC 174, TG94, LDL 116, HDL 44 EKG 02/19/22: NSR, NSST changesEKG 08/22/20: NSR, poor R progression, NSST changesEKG 04/25/20: NSR, poor R progression, NSST changesEKG 09/21/19: NSR, poor R progression, NSST changesEKG 03/02/19: NSR, poor R progression, NSST ebzdiry28/18/19 TDM: Negative stress test. Normal LV systolic function. No previous study to compare. LVEF 65%.03/10/19 ECHO: Study quality: Technically difficult. LV chamber size is normal. There is borderline LV hypertrophy. There is normal global systolic function and contractility. The estimated left ventricle ejection fraction is 55-60%(normal). There is mild thickening of mitral valve anterior leaflet. Jerzy Islas [place], [place] - [facility] 02/19/2022 15:38:25 04/02/2022 text/html 04/02/22CC : Car diac follow upHenry MELARA 66 y/o man with PMH of Hypertension and Hyperlipidemia is here for 6 week follow up. He was last seen in the clinic on 02/19/22 , since then he feels goodHe denies ER visits and hospitalizations since he was last seen. provided me diary of his BP recordings and now it runs abour 130-149/80-88 Today reports:Denies chest pain.Denies shortness of breath at rest. Has mild dyspnea on exertion.No orthopnea. No PNDs.Denies heart palpitations.Denies dizziness. Denies syncope or near syncope.No ankle or leg edema.No major bleeding events.No reported side effects from medications. Taking medications as prescribed with no missed doses.Denies snoring, daytime somnolence and AM headache.*Last LDL was 102 done on 09/03/21 .Pt takes simvastatin 40 mg. Previously :Provided me his BP diary. usually it is well controlled but occasionally goes to 167/93) he is still pretty active. *Had ECHO done on 09/22/21 showed LV chamber size is normal. There is borderline LV hypertrophy. LV systolic function is low normal. The estimated left ventricle ejection fraction is 50-55%(normal).LV relaxation is impaired. Left atrium chamber is mildly dilated. There is mild aortic root calcification. There is trivial aortic regurgitation. There is trace tricuspid regurgitation. 08/26/21:Na 142,k 3.9,Cl 101,Co2 27,Glu 114,Bun 19,Cr 0.90.08/26/21:TC 166,TG 139,HDL 38,LDL 102. 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 He was recently diagnosed with DM . He was started on Metformin. His last HgbA1c was 5.4. managed at [facility] overall feels fine. Occasionally noticed to have mild LE edema. States that eats frequently fast food. Does not follow low Na diet. Occasionally does have sharp/dull chest discomfort not related to physical activity. CTA 10/16/2019: No significant CADpreviously he was seen for preop eval and had stress test which was negative. he underwent cataract surgery on outpatient basis, [facility]. He had EKG which was abnormal. pt had stress test 2016 at [place], [place] he was told it was OK Had Dyspnea on exertion .Results from this visit, or from the past:05/03/20 HgA1c: 6.407 LIPID: TC 158, TR 140, HDL 39, LDL 63880 BMP: NA 143, K 4.4, CL 106, CO2 26, GLU 113, BUN 17, CR 0. LIPID: TC 146 TRI 85 HDL 41 LDL BMP: NA 144 K 4.0 CL 104 CO2 31 GLU 133 BUN 18 CR 0. CBC: WBC 7.4 HCT 43.4 HGB 14.3 PLT 216LIPIDS 01/07/19 TC 174, TG94, LDL 116, HDL 44 EKG 02/19/22: NSR, NSST changesEKG 08/22/20: NSR, poor R progression, NSST changesEKG 04/25/20: NSR, poor R progression, NSST changesEKG 09/21/19: NSR, poor R progression, NSST changesEKG 03/02/19: NSR, poor R progression, NSST vkeghki40/18/19 TDM: Negative stress test. Normal LV systolic function. No previous study to compare. LVEF 65%.03/10/19 ECHO: Study quality: Technically difficult. LV chamber size is normal. There is borderline LV hypertrophy. There is normal global systolic function and contractility. The estimated left ventricle ejection fraction is 55-60%(normal). There is mild thickening of mitral valve anterior leaflet. Jerzy Islas [place], [place] - [facility] 04/02/2022 15:45:53
--- OUTSIDE RECORDS SUMMARY | 2024-10-31 12:12 | XMS_ITS | Continuity of Care Document ---
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 [facility])([facility] [place] [place] tt Disease Managemen t) TELE CONSULT [id number] Notes Entered by: ANGELES CROOKS 10 Sep 2016 1130 ------- ------- ------- ------- -- Pt has been miscode d in NW. ANGELES CROOKS 09/[address] [facility] Medical Group [place] [facility] [place]S cott Disease Managem ent) [address] [place] [address] Group Francisco J [facility])([facility] Internal Medicine ) OUTPATIENT [id number] prescri ption XAVIER Hayes 09/11 Released w/o Limitations [facility] Medical Group [facility] J [facility])(S cott Interna l Medicin e Tm) [facility] Medical Group [facility] J [facility])([facility] Internal Medicine ) OUTPATIENT [id number] Blood pressur e check up XAVIER WILKINS 10/08 Released w/o Limitations [facility] Medical Group [facility] J [facility])(S cott Interna l Medicin e Tm) [facility] Medical Group [facility] J [facility])([facility] Internal Medicine ) OUTPATIENT [id number] Blood pressur e check up BRITTA BERGMAN 10/29 Released w/o Limitations [address] [place] [address] Group [facility] J [facility])(S cott Interna l Medicin e Tm) [facility] Medical [facility] Francisco J [facility])([facility] Internal Medicine ) TELE CONSULT [id number] Notes Entered by: MARCO STACK 18 Nov 2016 1137 ------- ------- ------- ------- -- Network results Cardiol ogy 7 PAMELA MAHONEY V 11/[address] [place] [address] [place] J [facility])(S cott Interna l Medicin e Tm) [address] [place] [address] [facility])([facility] Internal Medicine ) OUTPATIENT [id number] [facility] PAMELA SEARS V 09/03 Released w/o Limitations [address] [place] [address] [facility] J [facility])(S cott Interna l Medicin e Tm) [address] [place] [address] [facility] J [facility])([facility] Internal Medicine ) TELE CONSULT [id number] Notes Entered by: NEVILLE GILLILAND 25 Nov 2017 1305 ------- ------- ------- ------- -- Network Results Emergen cy Room 11/05/17 PAMELA BUTLER V 11/[address] [place] [address] [facility])(S cott Interna l Medicin e Tm) [address] [place] [address] Francisco J [facility])([facility] Internal Medicine ) TELE CONSULT [id number] Notes Entered by: LEYLA GUEVARA 25 Nov 2017 1520 ------- ------- ------- ------- -- Network Results Emergen cy Room 8 PAMELA MORALES V 11/[address] [place] [address] Francisco J KRYSTALBrice [facility] [place]S cott Interna l Medicin e Tm) [address] [place] [address] Francisco J Brice [facility] [place])([facility] Internal Medicine ) OUTPATIENT [id number] head & chest congest ions/fe koki, cough / PAMELA SEARS V 01/03 Released w/o Limitations [address] [place] [address] Francisco J B [facility] [place]S cott Interna l Medicin e Tm) [address] [place] [address] [place] J [facility] [place] Fam Res Tm [place]) TELE CONSULT [id number] Notes Entered by: Katy WEAVER 17 Mar 2018 1022 ------- ------- ------- ------- -- Results Letter RAVINDRA WEAVER 03/[address] [place] [address])(S [facility] Fam Res Tm Green) [address] [place] [address])([facility] Internal Medicine ) OUTPATIENT [id number] prescri ption refill ODELL GARRISON 10/06 Released w/o Limitations [address] [place] [address])(S [facility] Interna l Medicin e Tm) [address] [place] [address])([facility] Internal Medicine ) OUTPATIENT [id number] catarac ODELL Boykin 01/30 Released w/o Limitations [address] [place] [address])([facility] Interna l Medicin e Tm) [address] [place] [address])([facility] Internal Medicine ) TELE CONSULT [id number] Notes Entered by: JUAN ANTONIO GARCIA 22 Feb 2019 1441 ------- ------- ------- ------- -- FORM COMPLET AARON/BEATRICE JONES 02/22 Other Not Elsewhere Classified [address] [place] [address])([facility] Interna l Medicin e Tm) [address] [place] [address])([facility] Internal Medicine ) TELE CONSULT [id number] Notes Entered by: Lili LEVINE 07 Mar 2019 1537 ------- ------- ------- ------- -- Network results Cardiol ogy 019 ODELL FORD 03/[address] [place] [address])([facility] Interna l Medicin e Tm) [address] [place] [address])([facility] Internal Medicine ) OUTPATIENT [id number] F/U [facility] [place] ----- ALEYDA ROQUE 06/21 Released w/o Limitations [address] [place] [address])(S cott Interna l Medicin e Tm) [address] [place] [address])([facility] Internal Medicine Tm) TELE CONSULT [id number] Notes Entered by: CAROLE DE ANDA 28 Jun 2019 0835 ------- ------- ------- ------- -- Medicat ion Questio stacie/Sweta ers/[phone] 91 ALEYDA ROQUE 06/[address] [place] [address])(S cott Interna l Medicin e Tm) [address] [place] [address])([facility] Internal Medicine Tm) TELE CONSULT [id number] Notes Entered by: HALINA MINOR 29 Jun 2019 0805 ------- ------- ------- ------- -- Med Script Not Signed/ Jen s/ - BEATRICE Nickerson 06/29 Medication Refill Forwarded [address] [place] [address])(S cott Interna l Medicin e Tm) [address] [place] [address])([facility] Internal Medicine Tm) TELE CONSULT [id number] Notes Entered by: Stephanie WANG 12 Jul 2019 1540 ------- ------- ------- ------- -- Network results Neuro 06/30/20 19 TSB ALEYDA ROQUE 07/[address] [place] [address])(S cott Interna l Medicin e Tm) [address] [place] [address])([facility] Internal Medicine Tm) OUTPATIENT [id number] rx refill ALEYDA ROQUE 09/21 Released w/o Limitations [address] [place] [address])(S cott Interna l Medicin e Tm) [address] [place] [address])([facility] Internal Medicine Tm) TELE CONSULT [id number] Notes Entered by: Braden BROTHERS 05 Dec 2019 0900 ------- ------- ------- ------- -- referra l for quantam vision / BEATRICE Mitchell 12/04 Other Not Elsewhere Classified [address] [place] [address])(S cott Interna l Medicin e Tm) [address] [place] [address])([facility] Internal Medicine ) TELE CONSULT [id number] 5 Notes Entered by: ALLEN BANKS 29 Dec 2019 0929 ------- ------- ------- ------- -- Medicat ion Renewal / DM ALEYDA ROQUE 12/[address] [place] [address])(S cott Interna l Medicin e Tm) [address] [place] [address])([facility] Internal Medicine ) TELE CONSULT [id number] Notes Entered by: MOHIT HUI 23 Apr 2020 1247 ------- ------- ------- ------- -- Network results Ophthal mology 020 ALEYDA ACUÑA 04/[address] [place] [address])(S cott Interna l Medicin e Tm) [address] [place] [address])([facility] Internal Medicine ) TELE CONSULT [id number] Notes Entered by: Lili LEVINE 30 May 2020 1455 ------- ------- ------- ------- -- Network results Cardiol ogy 020 KJVANESSA WILEY 05/[address] [place] [address])(S cott Interna l Medicin e Tm) [address] [place] [address])([facility] Internal Medicine ) OUTPATIENT [id number] diabete s follow up, PCM:Frantz GRAY MARIAH D 07/02 Released w/o Limitations [address] [place] [address])(S cott Interna l Medicin e Tm) [address] [place] [address])([facility] Internal Medicine ) OUTPATIENT [id number] Blood pressur e check ALYEDA ROQUE 03/24 Released w/o Limitations [address] [place] [address])(S cott Interna l Medicin e Tm) [address] [place] [address])([facility] Internal Medicine ) TELE CONSULT [id number] Notes Entered by: MERISSA SPENCE 18 Apr 2021 0832 ------- ------- ------- ------- -- Network Results Podiatr y 021 BF ALEYDA ROQUE 04/[address] [place] [address])(S cott Interna l Medicin e Tm) [address] [place] [address])([facility] Internal Medicine ) OUTPATIENT [id number] F2F annual appoint ment ALEYDA ROQUE 08/27 Released w/o Limitations [address] [place] [address])(S cott Interna l Medicin e Tm) [address] [place] [address])([facility] Internal Medicine ) TELE CONSULT [id number] Notes Entered by: Stacie GALLARDO 06 Jan 2023 0952 ------- ------- ------- ------- -- Network Results - Optomet ry ERWIN COCHRAN 01/06[facility])(S cott Interna l Medicin e Tm) [address] [place] [address])([facility] Internal Medicine ) OUTPATIENT [id number] Check up, prescri ption refill ERWIN COCHRAN 01/20 Released w/o Limitations [address] [place] [address])(S cott Interna l Medicin e Tm) - [facility] Outside Documentat ion Only [id number] 01/19 Discharge Disposition: Home or Self Care - [facility]- [facility] J Procedures Combined list of: 1) Procedures from Department of Veterans Affairs facilities going back up to thelast 18 months, not all VA non-surgical procedures are included; 2) All procedures from the Department of Defense facilities. Procedure Procedure Type Code Date Perfomer Comments Sourc e No data available for this section Ambulato ry Pharmacy FOOT EXAMINATION PERFORMED (INCLUDES EXAMINATION THROUGH VISUAL INSPECTION, SENSORY EXAM WITH MONOFILAMENT, AND PULSE EXAM - REPORT WHEN ANY OF THE 3 COMPONENTS ARE COMPLETED) (DM) 021 [facility] WAIVER SERVICES; NOT OTHERWISE SPECIFIED (NOS) [facility] TELE ASSESS & MGT SRV PROV QUAL NONPHYS HLTH CARE PRO TO EST PAT,PARENT,GUARD NOT ORIG REL ASSESS & MGT SRV PROV W/IN PREV 7 DAYS NOR LEAD ASSESS & MGT SRV/PX W/IN NXT 24 HR/SOON APT;5-10 MIN MED DIS [facility] CASE MANAGEMENT, EACH 15 MINUTES [facility] CASE MANAGEMENT, EACH 15 MINUTES [facility] OPHTHALMOLOGICAL SERVICES: MEDICAL EXAMINATION AND EVALUATION, WITH INITIATION OR CONTINUATION OF DIAGNOSTIC AND TREATMENT PROGRAM; INTERMEDIATE, ESTABLISHED PATIENT [facility] OPHTHALMOLOGICAL SERVICES: MEDICAL EXAMINATION AND EVALUATION, WITH INITIATION OR CONTINUATION OF DIAGNOSTIC AND TREATMENT PROGRAM; INTERMEDIATE, ESTABLISHED PATIENT [facility] FITTING OF CONTACT LENS FOR TREATMENT OF OCULAR SURFACE DISEASE [facility] CASE MANAGEMENT, EACH 15 MINUTES [facility] IMMUNIZATION ADMINISTRATION (INCLUDES PERCUTANEOUS, INTRADERMAL, SUBCUTANEOUS, OR INTRAMUSCULAR INJECTIONS); 1 VACCINE (SINGLE OR COMBINATION VACCINE/TOXOID) 003 [facility] Non-Physician Phone Call To Patient/Provider Brief (5-10min) Non-Physician Phone Call To Patient/Provider Brief (5-10min) [phone] JENNIFER BERGMAN [facility] Case Management, each 15 minutes 016 NATIVIDAD COLE [facility] Case Management, each 15 minutes 016 ADDI GALLEGOS [facility] Ophthalmological Prior Patient Start Intermediate Level Care Ophthalmological Prior Patient Start Intermediate Level Care ANAND RENTERIA [facility] Ophthalmological Prior Patient Start Intermediate Level Care Ophthalmological Prior Patient Start Intermediate Level Care MARIO HALLMAN [facility] Fitting And Supply Therapeutic Contact Lens For Ocular Surface Disease Fitting And Supply Therapeutic Contact Lens For Ocular Surface Disease [id number] ANAND RENTERIA [facility] Removal Of Corneal Foreign Body Removal Of Corneal Foreign Body [phone] ANAND RENTERIA [facility] Ophthalmological New Patient Start Intermediate Level Care Ophthalmological New Patient Start Intermediate Level Care [id number] ANAND RENTERIA [facility] Case Management, each 15 minutes MARIO MICHELLE [facility] Preventive Medicine: Foot Examination Diabetic Preventive Medicine: Foot Examination Diabetic ALEYDA ROQUE [facility] Social History Combined list of available smoking, tobacco, and other social history from Department of Defense and Veterans Affairs facilities. Social History Type Response Date Comment Sourc e Male 11/26/2022 Ambulatory Pha rmacy Sexual Orientation Ambula tory Pharmacy Gender identity Ambulator y Pharmacy This section is an empty soc ial history section. [facility] Assessment and Plan Combined list of future care activities from Department of Defense and Veterans Affairs facilities (e.g., assessment and plan notes, appointments, orders, and referrals). Additional future care activities may be listed in the Plan of Care section. Result Assessment and Plan Date Source Assessment and Plan No data available for this section 10/31/2024 Ambulatory Pharmacy Functional Status Combined list of recent functional and cognitive assessments recorded at Department of Defense and Veterans Affairs (VA).VA Functional Stanley Measurement (FIM) Scale: 1 = Total Assistance (Subject = 0% +), 2 = Maximal Assistance (Subject = 25% +), 3 = Moderate Assistance (Subject = 50% +), 4 = Minimal Assistance (Subject = 75% +), 5 = Supervision, 6 = Modified Stanley (Device), 7 = Complete Stanley (Timely, Safely). Assessment Date/Time Source Assessment Type Assessment Skill Assessment Score Assessment Details No data available for this section
--- OUTSIDE RECORDS SUMMARY | 2024-10-31 12:16 | XMS_ITS | Encounter Summary ---
Author Organization [facility] Address [address] [place] [address]. [place] [address] [place] [address] Care Team Providers Care Media Operator Name Role Phone Gilson Stanley MD Primary Care Provider [phone] Bossman Baird MD Unavailable Maria Esther Haas Md, MD Primary Care Provider Unavailable Anupama Robison ECOLOGY PROFESSOR Primary Care Provider [phone] Encounter Details Date Type Department Care Team (Late st Contact Info) Description 11/03/2016 Abstract [facility] [address] [place] [id number] Bossman Baird MD Social History Tobacco Use Types Packs/Day Years Used Date Smoking Tobacco: Never Alcohol Use Standard Drinks/Week Comments No 0 (1 standard drink = 0.6 oz pur e alcohol) Sex and Gender Information Value Date Recorded Sex Assigned at Not on file 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 [address] [place] [address] PCP - General Nurse Practitioner Family 06/11/22 Bossman Baird MD [address] [place] [address] CARDIOVASCULAR DISEASE 11/05/16 documented as of this encounter
--- OUTSIDE RECORDS SUMMARY | 2024-10-31 12:17 | XMS_ITS | Encounter Summary ---
Author Organization [facility] Address [address] [place] [address]. [place], [place] [address] [place] [address] Care Team Providers Care Forming Tube Selector Name Role Phone Bossman Baird MD [facility] Anupama Mims NP Primary Care Provider [phone] Encounter Details Date Type Department Care Team (Late st Contact Info) Description 02/18/2024 anydooRt Message Enc [facility] Medical Group Family & Internal Medicine [facility] [address] [place] [address] [place] [address] [facility] [address]. 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 He should increase dose to 10 mg nightly documented in this encounter Plan of Treatment Not on file documented as of this encounter Visit Diagnoses Not on filedocumented in this encounter Care Teams Forming Tube Selector Relationship Specialty Start [place] [address] [facility] [address] [facility] [place] [address] PCP - General Nurse Practitioner Family 06/11/22 Bossman Baird MD CARDIOVASCULAR DISEASE 11/05/16 documented as of this encounter
--- OUTSIDE RECORDS SUMMARY | 2024-10-31 12:17 | XMS_ITS | Clinical Summary ---
Author Organization [facility] Address [address] [place] [address]. [place] [address] [place] [address] Care Team Providers Care Finished Metal Repairer Name Role Phone Bossman Baird MD [facility] Anupama Mims NP Primary Care Provider [phone] Allergies No known active allergies Medications aspirin EC (ECOTRIN) 81 MG tabletIndications :Type 2 diabetes mellitus with hyperglycemia, without long-term current use of insulin ([facility]) Take 1 tablet (81 mg total) by mouth daily. 100 tablet 3 4 Active lisinopril (PRINIVIL) 40 MG tabletIndications :Primary hypertension,Type 2 diabetes mellitus with hyperglycemia, without long-term current use of insulin ([facility]) Take 1 tablet (40 mg total) by mouth daily. 90 tablet 3 4 Active hydroCHLOROthiazi de (HYDRODIURIL) 25 MG tabletIndications :Primary hypertension Take 1 tablet (25 mg total) by mouth every morning. 90 tablet 3 4 Active carvedilol (COREG) 25 MG tabletIndications :Primary hypertension Take 1 tablet (25 mg total) by mouth 2 (two) times a day. 180 tablet 3 4 Active magnesium oxide (MAG-OX) 400 MG tabletIndications :Primary hypertension Take 1 tablet (400 mg total) by mouth every other day. 45 tablet 2 4 Active metFORMIN ER (GLUCOPHAGE-XR) 500 MG 24 hr tabletIndications :Type 2 diabetes mellitus with hyperglycemia, without long-term current use of insulin ([facility]) Take 2 tablets (1,000 mg total) by mouth daily with breakfast. 180 tablet 1 4 Active rosuvastatin (CRESTOR) 10 MG tabletIndications :Mixed hyperlipidemia,Ty pe 2 diabetes mellitus with hyperglycemia, without long-term current use of insulin ([facility]) Take 1 tablet (10 mg total) by mouth nightly. 90 tablet 3 4 Active furosemide (LASIX) 20 MG tabletIndications :Primary hypertension Take 1 tablet (20 mg total) by mouth as needed (PT ONLY TAKES PRN WHEN BP IS HIGH). 30 tablet 4 Active amLODIPine (NORVASC) 10 MG tabletIndications :Essential hypertension Take 1 tablet (10 mg total) by mouth nightly at bedtime. 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 05/29/2024 Impaired fasting glucose 05/29/2024 Posterior corneal pigmentation 05/29/2024 Obesity (BMI 30-39.9) 03/02/2024 At low risk for fall 03/02/2024 Chest discomfort 09/21/2019 Diabetes mellitus ([facility]) 09/21/2019 Dyspnea on exertion 03/02/2019 Electrocardiogram abnormal 03/02/2019 Hyperlipidemia Essential hypertension Immunizations Name Administration Dates Next Due Anthrax Vaccine 12/29/1999, 9,12/06/1998,1997,06/26/1998,06/12/1998 Fluad influenza vaccine, All drivalent (aIIV4), Inactivated, adjuvanted, preservative free, 0.5 mL,IM use 07/09/2022 Fluzone High Dose - >Age 65 (Prefilled Syringe) 07/09/2023 Hepatitis A (Havrix [address]) 12/29/1999,1998 Influenza (Generic) 07/16/2021, 7,06/30/2016,2013,08/11/2013,08/16/2003,10/12/2000,1 Influenza Adult (Generic) 07/03/2020,08/02/2019, 07/31/2018 Measles/Rubella 05/21/1980 PFIZER COVID-19 (ORIGINAL FORMULATION, PURPLE CAP) mRNA, LNP-S, PF, 30 MCG/0.3 ML DOSE 09/19/2021 Polio Opv (Generic) 05/21/1980 Shingrix 08/26/2021,03/28/2021 Td (TDVAX) 03/28/2021,07/02/1999 Tdap (Generic) 12/23/2009 Family History Medical History Relation Comments Hyperlipidemia Father Hypertension Father Open Heart Father Cancer Mother BREAST Relation Status Comments Father Mother Social History Tobacco Use Types Packs/Day Years Used Date Smoking Tobacco: Never Smokeless Tobacco: Never Tobacco Cessation:Counseling Given: No Alcohol Use Standard Drinks/Week Comments Not Currently 0 (1 standard drink = 0.6 oz pur e alcohol) hasnt drank in years PHQ-2 Answer Date Recorded Patient Health Questionnaire-2 Score 0 02/16/2024 Sex and Gender Information Value Date Recorded Sex Assigned at Not on file 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 Gender Identity Not on file Sexual Orientation Not on file 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[employer] Not on file Not on file Not on file Last Filed Vital Signs Vital Sign Reading Time Taken Comments Blood Pressure 118/61 05/29/2024 6:53 AM CDT Pulse 68 05/29/2024 6:53 AM CDT Temperature 37 ??C (98.6 ??F) 05/29/2024 6:53 AM CDT Respiratory Rate 16 05/29/2024 6:53 AM CDT Oxygen Saturation 97% 05/29/2024 6:53 AM CDT Inhaled Oxygen Concentration - - Weight 89 kg (196 lb 3.2 oz) 05/29/2024 6:53 AM CDT Height 162.6 cm (5' 4 ) 05/29/2024 6:53 AM CDT Body Mass Index 33.68 05/29/2024 6:53 AM CDT Plan of Treatment Health Maintenance Due Date Last Done Comments Pneumococcal Vaccine: 65+ Years (1 of 2 - PCV) 1962 Diabetes: Retinopathy Eye Exam 1974 Annual Medicare Wellness Visit 2021 COVID-19 Vaccine ( - season) 2024 09/19/2021, 12/26/2020, 12/05/2020 Influenza Adult (#1) 2024 07/09/2023, 07/09/2022, 07/16/2021, Additional history exists Hemoglobin A1C 08/11/2024 02/09/2024, 06/04, 08/26/2021, Additional history exists PHQ-2 (Physician [place]) 10/04/2024 02/16/2024 Kidney Health Evaluation 02/08/2025 02/09/2024 Lipid Panel 02/08/2025 02/09/2024, 06/04, 01/19/2016 PHQ-2 (Physician [place]) 02/15/2025 02/16/2024 Colorectal Cancer Screening Colonoscopy (10 Years) 11/05/2027 11/05/2017 DTaP, Tdap and Td Vaccines (3 - Td or Tdap) 03/28/2031 03/28/2021, 12/23/2009, 07/02/1999 RSV Immunization or 60+ Years (1 - 1-dose 75+ series) 2031 Hepatitis C Completed 10/09/2016 Zoster Vaccines Completed 08/26/2021, 03/28/2021 Meningococcal B Vaccine Aged Out No l onger eligible based on patient's age to complete this topic Meningococcal Vaccine Aged Out No abimael abbie eligible based on patient's age to complete this topic RSV Immunizations Under 20 Months Aged Out No longer eligible based on patient's age to complete this topic Procedures Procedure Name Priority Date/Time Associated Diagnosis Comments LIPID PANEL Routine 02/09/2024 1:33 PM CDT Mixed hyperlipidemia HEMOGLOBIN, GLYCOSYLATED Routine 02/09/2024 1:33 PM CDT Type 2 diabetes mellitus with hyperglycemia, without long-term current use of insulin ([facility]) COLONOSCOPY GENERIC (SCAN ORDER) 11/05/2017 HEP C SCANNED ORDERS Routine 10/09/2016 from Last 3 Months or Most Recently Relevant to Health Maintenance Results * (ABNORMAL) HEMOGLOBIN, GLYCOSYLATED (02/09/2024 1:33 PM CDT) HGB A1C 5.7(H) <5.7 % 02/09/2024 7:00 PM CDT [facility] Comment: INCREASED RISK OF DIABETES <5.7% ?NON-DIABETES 5.7-6.4% INCREASED RISK FOR FUTURE DIABETES > OR = 6.5 CONSISTENT WITH DIABETES STANDARDS OF MEDICAL CARE IN DIABETES-2010 DIABETES CARE, 33(SUPP 1): S1-S61,2009 ESTIMATED AVG GLUCOSE 117 mg/dL 02/09/2024 7:00 PM CDT [facility] 02/09/2024 1:33 PM CDT Anupama Robison NP LABORATORY Final Result [facility] [address] [place] [address], [place] [phone] * (ABNORMAL) LIPID PANEL (02/09/2024 1:33 PM CDT) CHOLESTEROL 245(H) <200.0 MG/DL 02/09/2024 5:52 PM CDT [facility] TRIGLYCERIDES 117 <150 MG/DL 02/09/2024 5:52 PM CDT [facility] HDL 47 >40.0 MG/DL 02/09/2024 5:52 PM CDT [facility] LDL (CALCULATED) 175(H) <100 MG/DL 02/09/2024 5:52 PM CDT [facility] NON HDL CHOLESTEROL 198(H) <130 MG/DL 02/09/2024 5:52 PM CDT [facility] CHOL/HDL RATIO 5.2(H) 0.0 - 4.5 02/09/2024 5:52 PM CDT [facility] VLDL CALCULATION 23 5 - 55 MG/DL 02/09/2024 5:52 PM CDT [facility] LIPID INTERPRETATION 02/09/2024 5:[address] [facility] Comment: [facility] CONCENSUS REPORT RECOMMENDATIONS: ?ADULT ?CHILD ??LOW RISK: ?CHOLESTEROL ? <200 ? <170 ?TRIGLYCERIDE ?<150 ?--- ?HDL ? >=60 ?--- ?LDL ? <100 ? <110 ??BORDERLINE: ?CHOLESTEROL ? 200-239 ?? 170-199 ?TRIGLYCERIDE ?150-199 ? --- ?HDL ?40-59 ?--- ?LDL ? 100-159 ?? 110-129 ??HIGH RISK: ?CHOLESTEROL ? >=240 ?>=200 ?TRIGLYCERIDE ?>=200 ? --- ?HDL ?<40 ?--- ?LDL ? >=160 ?>=130 02/09/2024 1:33 PM CDT Anupama Robison [employer] LABORATORY Final Result [facility] [address] [place] [address], * COLONOSCOPY GENERIC (11/05/2017) 11/05/2017 [facility] Scanned SCANNING Final Resu lt * HEP C SCANNED ORDERS (10/09/2016) [facility] Scanned SCANNING Final Resu lt Performing Organization Address City/[facility]/ZIP Co de Phone Number [facility] from Last 3 Months or Most Recently Relevant to Health Maintenance Insurance MEDICARE [facility] [employer] Care Teams Finished Metal Repairer Relationship Specialty Start [place] [address] [address]. [place] [address] PCP - General Nurse Practitioner Family 06/11/22 Bossman Baird MD CARDIOVASCULAR DISEASE 11/05/16
== END 2024-10-31 12:00 | disposition home or self-care (01) ==
PROVIDERS: Emergency Provider Nurse Practitioner Family; PCP Nurse Practitioner Family
DX: B34.9 Viral infection, unspecified (principal); Z20.822 Contact with and (suspected) exposure to COVID-19; Z79.82 Long term (current) use of aspirin; E78.00 Pure hypercholesterolemia, unspecified; I10 Essential (primary) hypertension; M19.90 Unspecified osteoarthritis, unspecified site; R73.03 Prediabetes
CPT/HCPCS: 87426; 87804; 99212; G0463